=== PATIENT | male | born 1995 | race Caucasian/White ===

== ENCOUNTER 2023-11-23 17:05 | Emergency (ER) | payer OTHER ==
[~2023-11-23] VITALS: Ht 175.3 cm; Wt 81.0 kg
[2023-11-23 17:10] VITALS: O2SAT 99
[2023-11-23] MEDS ORDERED: TETANUS AND DIPHTHERIA TOX/PF 0.5ML SYR (ADULT) IM ONE (18:30)
[2023-11-23] MEDS: LIDOCAINE HCL 1% 20ML VIAL INFIL ONE (18:30)
[2023-11-23] MEDS: TETANUS, DIPHTHERIA, PERTUSSIS VAC/PF 0.5ML (>10YR OLD) IM ONE (19:40)
[2023-11-23 19:41] VITALS: BP 130/77; PULSE 88; RESP 20; TEMP 98.7
== END 2023-11-23 19:45 | disposition home or self-care (01) ==
LOC: ER 17:05
DX: S51.811A Laceration without foreign body of right forearm, initial encounter (principal); F19.90 Other psychoactive substance use, unspecified, uncomplicated; X99.1XXA Assault by knife, initial encounter; Y93.89 Activity, other specified; Y92.89 Other specified places as the place of occurrence of the external cause; Y99.8 Other external cause status
CPT/HCPCS: 12032; 99284; J3490; Z7610 ×2; 90714